=== PATIENT | female | born 2000 | race American Indian/Alaskan Native ===

== ENCOUNTER 2022-01-09 19:45 | Emergency (ER) | payer SELFPAY ==
[2022-01-10] MEDS ORDERED: METOCLOPRAMIDE 10 MG/2 ML INJ IV ONE (01:14)
[2022-01-10] MEDS ORDERED: diphenhydrAMINE 50 MG/ML VIAL IV ONE (01:14)
[2022-01-10] MEDS ORDERED: SODIUM CHLORIDE 0.9% 1000 ML 1,000 ML IV ONE (01:14)
[2022-01-10] MEDS ORDERED: FAMOTIDINE 20 MG/2 ML INJ IV ONE (01:14)
[2022-01-10] MEDS ORDERED: MORPHINE 4 MG/1 ML INJ IV ONE (01:14)
[2022-01-10 02:14] LABS: Alanine Aminotransferase 13 units/L (7-56); Albumin 4.9 g/dL (3.9-5); BUN/Creatinine Ratio 15; Blood Urea Nitrogen 12 mg/dL (7-17); Calcium 9.8 mg/dL (8.4-10.2); Hemolysis Index 7
--- NOTE | 2022-01-10 02:24 | Ultrasound Report ---
ULTRASOUND PELVIS INDICATION: Pelvic pain, N/V, . TECHNIQUE: Transabdominal and Transvaginal. Duplex Color Doppler used: Yes. COMPARISON: None available FINDINGS: Uterus: Present. Size: 8.2 x 5.4 x 6.7 cm. Endometrial complex: Early viable intrauterine dated 6 weeks 4 days. heart tones are 120 bpm. Mass lesions: None. Additional findings: None. Right Ovary -- Normal. Blood flow: Normal. Cyst or mass: None. Left Ovary-- Normal. Blood flow: Normal. Cyst or mass: None. Urinary Bladder: Normal. Free Fluid: Trace. Additional Findings: None. IMPRESSION: 1. Early viable intrauterine dated 6 weeks 4 days. 2. Trace pelvic free fluid. Signer Name: Gagandeep Galdamez MD Signed: 01/10/2022 2:20 AM Workstation Name: [id number]
[2022-01-10 02:44] LABS: Hematocrit 39.3 % (30.3-42.9); Hemoglobin 14.4 gm/dl (10.1-14.3); Mean Corpuscular Volume 88 fl (79-97); Red Blood Count 4.45 M/mm3 (3.65-5.03)
[2022-01-10 02:45] LABS: Mean Corpuscular HGB Conc 37 % (30-34); Platelet Count 310 K/mm3 (140-440); Red Cell Distribution Width 12.5 % (13.2-15.2)
[2022-01-10 02:53] LABS: Basophils % (Auto) 0.4 % (0.0-1.8); Eosinophils % (Auto) 0.6 % (0.0-4.3); Lymphocytes % (Auto) 22.5 % (13.4-35.0); Monocytes % (Auto) 7.8 % (0.0-7.3)
[2022-01-10 02:54] LABS: Eosinophils # (Auto) 0.1 K/mm3 (0.0-0.4); Lymphocytes # (Auto) 2.2 K/mm3 (1.2-5.4); Monocytes # (Auto) 0.8 K/mm3 (0.0-0.8)
[2022-01-10 02:57] LABS: Bacteria,Urine 1+ /HPF (Negative); Bilirubin,Urine NEG (Negative); Blood,Urine NEG (Negative); Color,Urine Yellow (Yellow); Mucus,Urine FEW /HPF; Urobilinogen,Urine < 2.0 mg/dL (<2.0)
--- NOTE | 2022-01-10 03:19 | Emergency Department Report ---
ED N/V/D HPI - General Chief complaint: Abdominal Pain Stated complaint: ISSUES 5WKS? Source: patient Mode of arrival: Ambulatory Limitations: No Limitations - History of Present Illness Initial comments: Patient is a A0 21-year-old -[place] female with no past medical history presents to the ED with complaint of acute onset persistent pelvic pain and intractable nausea and vomiting for the last 1 week, worse in the last 3 days. Patient states that she has not been able to keep anything down because of intractable nausea and vomiting and that she has had multiple vomiting episodes in the last 12 hours. Patient denies fever, chills, vaginal bleeding, vaginal discharge, dysuria, urinary frequency and urgency, low back pain, chest pain, shortness of breath, headache, dizziness or syncope. MD complaint: nausea, vomiting, abdominal pain -: Sudden, week(s) (1) Description of Vomiting: food contents, watery, bilious Associated Abdominal Pain: Yes (Diffuse and pelvic) Location: diffuse Radiation: none Severity: severe Pain Scale: 8 Quality: cramping, aching, sharp Consistency: intermittent Improves with: none Worsens with: eating, vomiting Context: possible food poisoning, other ( related) Associated Symptoms: denies other symptoms, loss of appetite, malaise, nausea/vomiting. denies: myalgias, chest pain, cough, diaphoresis, fever/chills, rash, dysuria, shortness of breath, syncope, weakness, other - Related Data Previous Rx's Medication Instructions Recorded Last Taken Type Acetaminophen [Tylenol] 500 mg PO Q6HR PRN #30 tablet 01/10/22 Unknown Rx Famotidine [Pepcid] 20 mg PO BID #60 tablet 01/10/22 Unknown Rx Metoclopramide [Reglan] 10 mg PO TID PRN #30 tab 01/10/22 Unknown Rx [id number]/Iron,Crb/Folic 1 each PO DAILY #60 tab 01/10/22 Unknown Rx [Kosher Plus Iron Tab] Promethazine [Phenergan] 25 mg NE Q6HR PRN #15 supp.rect 01/10/22 Unknown Rx Allergies Allergy/AdvReac Type Severity Reaction Status Date / Time No Known Allergies Allergy Verified 01/09/22 20:10 ED Review of Systems ROS: Stated complaint: ISSUES 5WKS? Other details as noted in HPI Constitutional: denies: chills, fever Eyes: denies: eye pain, eye discharge, vision change ENT: denies: ear pain, throat pain Respiratory: denies: cough, shortness of breath, SOB with exertion, wheezing Cardiovascular: denies: chest pain, palpitations Endocrine: no symptoms reported Gastrointestinal: abdominal pain, nausea, vomiting. denies: diarrhea, constipation Genitourinary: denies: urgency, dysuria, discharge Musculoskeletal: denies: back pain, joint swelling, arthralgia Skin: denies: rash, lesions Neurological: denies: headache, weakness, paresthesias Psychiatric: denies: anxiety, depression Hematological/Lymphatic: denies: easy bleeding, easy bruising ED Past Medical Hx - Past Medical History Previous Medical History?: No - Surgical History Past Surgical History?: Yes Additional Surgical History: knee surgery - Social History Smoking Status: Never Smoker Substance Use Type: None - Medications Home Medications: Home Medications Medication Instructions Recorded Confirmed Last Taken Type Acetaminophen [Tylenol] 500 mg PO Q6HR PRN #30 tablet 01/10/22 Unknown Rx Famotidine [Pepcid] 20 mg PO BID #60 tablet 01/10/22 Unknown Rx Metoclopramide [Reglan] 10 mg PO TID PRN #30 tab 01/10/22 Unknown Rx [id number]/Iron,Crb/Folic 1 each PO DAILY #60 tab 01/10/22 Unknown Rx [Kosher Plus Iron Tab] Promethazine [Phenergan] 25 mg NE Q6HR PRN #15 supp.rect 01/10/22 Unknown Rx ED Physical Exam - General Limitations: No Limitations General appearance: alert, in no apparent distress - Head Head exam: Present: atraumatic, normocephalic, normal inspection - Eye Eye exam: Present: normal appearance, PERRL, EOMI Pupils: Present: normal accommodation - ENT ENT exam: Present: normal exam, normal orophraynx, mucous membranes moist, TM's normal bilaterally, normal external ear exam - Neck Neck exam: Present: normal inspection, full ROM. Absent: tenderness - Respiratory Respiratory exam: Present: normal lung sounds bilaterally. Absent: respiratory distress, wheezes, rales, rhonchi, stridor, chest wall tenderness, accessory mu scle use, decreased breath sounds - Cardiovascular Cardiovascular Exam: Present: regular rate, normal rhythm, normal heart sounds. Absent: systolic murmur, diastolic murmur, rubs, gallop - GI/Abdominal GI/Abdominal exam: Present: soft, tenderness (Palpable mild diffuse tenderness, no guarding or rebound), normal bowel sounds. Absent: guarding, rebound, hyperactive bowel sounds, organomegaly, mass, bruit - Extremities Exam Extremities exam: Present: normal inspection, full ROM, normal capillary refill. Absent: tenderness - Back Exam Back exam: Present: normal inspection, full ROM. Absent: tenderness, CVA tenderness (R), CVA tenderness (L), muscle spasm, paraspinal tenderness, vertebral tenderness - Neurological Exam Neurological exam: Present: alert, oriented X3, CN II-XII intact, normal gait, reflexes normal - Psychiatric Psychiatric exam: Present: normal affect, normal mood - Skin Skin exam: Present: warm, dry, intact, normal color. Absent: rash ED Course Vital Signs 01/09/22 01/10/22 20:02 02:22 Temperature 98.1 F Pulse Rate 97 H Respiratory 18 14 Rate Blood Pressure 120/79 [Left] O2 Sat by Pulse 98 Oximetry ED Medical Decision Making - Lab Data Result diagrams: 01/10/22 01:32 01/10/22 01:32 - Radiology Data Radiology results: report reviewed, [place] [address] Ultrasound Report Signed Patient: MARIO OSBORN MR#: [id number] : 2000 Acct:[id number] Age/Sex: 21 / F ADM Date: 01/09/22 Loc: ED Attending Dr: Ordering Physician: JEFFREY VILLALTA Date of Service: 01/10/22 Procedure(s): US OB transvaginal Accession Number(s): [id number] cc: JEFFREY VILLALTA ULTRASOUND PELVIS INDICATION: Pelvic pain, N/V, . TECHNIQUE: Transabdominal and Transvaginal. Duplex Color Doppler used: Yes. COMPARISON: None available FINDINGS: Uterus: Present. Size: 8.2 x 5.4 x 6.7 cm. Endometrial complex: Early viable intrauterine dated 6 weeks 4 days. heart tones are 120 bpm. Mass lesions: None. Additional findings: None. Right Ovary -- Normal. Blood flow: Normal. Cyst or mass: None. Left Ovary-- Normal. Blood flow: Normal. Cyst or mass: None. Urinary Bladder: Normal. Free Fluid: Trace. Additional Findings: None. IMPRESSION: 1. Early viable intrauterine dated 6 weeks 4 days. 2. Trace pelvic free fluid. Signer Name: Gagandeep Galdamez MD Signed: 01/10/2022 2:20 AM Workstation Name: [id number] Transcribed By: ES Dictated By: Gagandeep Galdamez MD Electronically Authenticated By: Gagandeep Galdamez MD Signed Date/Time: 01/10/22219 DD/ 6 TD/TT: [facility] [address] [place] [address] Ultrasound Report Signed Patient: MARIO OSBORN MR#: [id number] : 2000 Acct:[id number] Age/Sex: 21 / F ADM Date: 01/09/22 Loc: ED Attending Dr: Ordering Physician: JEFFREY VILLALTA Date of Service: 01/10/22 Procedure(s): US OB <= 14 weeks fetus Accession Number(s): [id number] cc: JEFFREY VILLALTA ULTRASOUND PELVIS INDICATION: Pelvic pain, N/V, . TECHNIQUE: Transabdominal and Transvaginal. Duplex Color Doppler used: Yes. COMPARISON: None available FINDINGS: Uterus: Present. Size: 8.2 x 5.4 x 6.7 cm. Endometrial complex: Early viable intrauterine dated 6 weeks 4 days. heart tones are 120 bpm. Mass lesions: None. Additional findings: None. Right Ovary -- Normal. Blood flow: Normal. Cyst or mass: None. Left Ovary-- Normal. Blood flow: Normal. Cyst or mass: None. Urinary Bladder: Normal. Free Fluid: Trace. Additional Findings: None. IMPRESSION: 1. Early viable intrauterine dated 6 weeks 4 days. 2. Trace pelvic free fluid. Signer Name: Gagandeep Galdamez MD Signed: 01/10/2022 2:20 AM Workstation Name: [id number] Transcribed By: ES Dictated By: Gagandeep Galdamez MD Electronically Authenticated By: Gagandeep Galdamez MD Signed Date/Time: 01/10/22219 DD/ 6 TD/TT: Print Cancel - Medical Decision Making This is a A0 21-year-old -[place] female with no past medical history presents to the ED with complaint of acute onset persistent pelvic pain and intractable nausea and vomiting for the last 1 week, worse in the last 3 days. Patient states that she has not been able to keep anything down because of intractable nausea and vomiting and that she has had multiple vomiting e pisodes in the last 12 hours. In the ED, patient is alert and oriented x3 and is not in any distress. Patient is hemodynamically stable. Patient was treated for pain in the ED and was given antiemetics and normal saline 1 L IV bolus x1. Lab test results and showed acute hyponatremia 133 mmol/L, acute hypochloremia of 93.3 mmol/[place] [id number]. Urinalysis is unremarkable. Transvaginal ultrasound showed early viable intrauterine dated 6 weeks 4 days with a heart rate of 120 bpm. On reevaluation, patient's pain is well controlled medication. Nausea and vomiting is well controlled and patient passed oral fluid challenge in the ED. Patient will discharge home with a prescription of antiemetics and Tylenol, also given vitamin prescriptions. Patient was given referral to the [employer] [employer] physician Dr. Vega for follow-up in 3 to 5 days for reevaluation. Patient was advised return to the ED immediately if symptoms get worse. - Differential Diagnosis Ectopic ; UTI; dehydration; hyperemesis; ovarian cyst; Critical care attestation.: If time is entered above; I have spent that time in minutes in the direct care of this critically ill patient, excluding procedure time. ED Disposition Clinical Impression: Abdominal pain during in first trimester, Hyperemesis gravidarum, Acute hyponatremia Disposition: 01 HOME / SELF CARE / HOMELESS Is pt being admited?: No Does the pt Need Aspirin: No Condition: Stable Instructions: Abdominal Pain (ED), Abdominal Pain During , [id number], Morning Sickness, [id number], Hyperemesis Gravidarum Additional Instructions: All lab test results were reviewed and are all nonactionable. Transvaginal ultrasound showed early viable intrauterine dated 6 weeks 4 days with a heart rate of 120 bpm. Therefore maintain a clear liquid diet for 12 to 24 hours, drink plenty of fluids, take medication as needed for nausea and vomiting and follow-up with the [facility] [employer] physician Dr Vega in 3 to 5 days for reevaluation. Return to the ED immediately if symptoms get worse. Prescriptions: Acetaminophen [Tylenol] 500 mg PO Q6HR PRN #30 tablet PRN Reason: Pain , Severe (7-10) [id number]/Iron,Crb/Folic [Kosher Plus Iron Tab] 1 each PO DAILY #60 tab Famotidine [Pepcid] 20 mg PO BID #60 tablet Promethazine [Phenergan] 25 mg NE Q6HR PRN #15 supp.rect PRN Reason: Nausea And Vomiting Metoclopramide [Reglan] 10 mg PO TID PRN #30 tab PRN Reason: Nausea Referrals: MAUIRCIO TINAJERO MD [Primary Care Provider] - 3-5 Days Time of Disposition: 03:25 Print Language: STATELESS
[2022-01-10 04:05] VITALS: BP 115/70
== END 2022-01-10 04:05 | disposition home or self-care (01) ==
LOC: ED 19:45
DX: O21.0 Mild hyperemesis gravidarum (principal); O26.891 Other specified pregnancy related conditions, first trimester; E87.1 Hypo-osmolality and hyponatremia; Z79.899 Other long term (current) drug therapy; Z3A.01 Less than 8 weeks gestation of pregnancy
CPT/HCPCS: 36415; 76801; 76817; 80053; 81001; 83690; 84702; 85025; 96361; 96374; 96375; 99284; J1200; J2270; J2765; J3490; J7030; Q0162